=== PATIENT | female | born 1970 | race Two or more races ===

== ENCOUNTER 2025-07-01 20:37 | Inpatient (IN) | payer OTHER, MEDICAID ==
[~2025-07-01] VITALS: Ht 152.4 cm; Wt 77.5 kg
--- NOTE | 2025-07-01 21:13 | ED.PDOC ---
History of Present Illness HPI Comments 55-year-old female with past medical history of gastritis, unrepaired VSD, comes in due to left-sided flank pain. According to the patient, around 2:00 p.m. today on 07/01/2025 she started experiencing a left-sided flank pain with radiation to the back, she describes the pain as sharp, constant, 9/10 at onset, relieved by 2 Advils, without any exacerbating factors and associated with nausea and urinary frequency. Denies having similar symptoms in the past. On review of systems patient is complaining of chills, fever, dry cough, nausea,burning urination. Chief Complaint: Flank Pain Time Seen by MD: 20:51 Allergies: Coded Allergies: Penicillins (Verified Allergy, Unknown, 07/01/25) Information Source: Patient Mode of Arrival: Ambulatory Severity: Mild Timing: Hours Duration: Intermittent Prehospital treatment: Pain Meds Past Medical History Past Medical History (Contd): gastritis, unrepaired VSD Surgical History: Cholecystectomy Social History Smoker: Non-Smoker Alcohol: Denies ETOH Use Drugs: Denies Drug Use Lives In: Home Constitutional: reports: chills; denies: diaphoresis, fatigue, fever, malaise, sweats, weakness, others EENTM: denies: blurred vision, double vision, ear bleeding, ear discharge, ear drainage, ear pain, ear ringing, eye pain, eye redness, hearing loss, mouth pain, mouth swelling, nasal discharge, nose bleeding, nose congestion, nose pain, photophobia, tearing, throat pain, throat swelling, voice changes, others Respiratory: reports: cough; denies: hemoptysis, orthopnea, SOB at rest, shortness of breath, SOB with excertion, stridor, wheezing, others Cardiovascular: denies: chest pain, dizzy spells, diaphoresis, Dyspnea on exertion, edema, irregular heart beat, left arm pain, lightheadedness, palpitations, PND, syncope, others Gastrointestinal: reports: nausea; denies: abdomen distended, abdominal pain, blood streaked bowels, constipated, diarrhea, dysphagia, difficulty swallowing, hematemesis, melena, poor appetite, poor fluid intake, rectal bleeding, rectal pain, vomiting, others Genitourinary: reports: burning, dysuria, flank pain, frequency; denies: abnormal vagina bleeding, dyspareunia, hematuria, incontinence, pain, , vagina discharge, urgency, others Neurological: denies: dizziness, fainting, headache, left sided numbness, left sided weakness, numbness, paresthesia, pre-existing deficit, right sided numbness, right sided weakness, seizure, speech problems, tingling, tremors, weakness, others Musculoskeletal: denies: back pain, gout, joint pain, joint swelling, muscle pain, muscle stiffness, neck pain, others Integumetry: denies: bruises, change in color, change in hair/nails, dryness, laceration, lesions, lumps, rash, wounds, others Allergic/Immunocompromised: denies: Difficulty Healing, Frequent Infections, Hives, Itching, others Hematologic/Lymphatic: denies: anemia, blood clots, easy bleeding, easy b ruising, swollen glands, others Physical Exam General Appearance: Mild Distress HEENT: Normal ENT Inspection, PERRL/EOMI Neck: Full Range of Motion, Non-Tender, Normal, Normal Inspection Respiratory: Lungs Clear, No Accessory Muscle Use, No Respiratory Distress, Normal Breath Sounds Cardiovascular: No Edema, No JVD, No Murmur, Regular Rate/Rhythm Breast Exam: Deferred Gastrointestinal: Suprapubic, Tenderness, Other (Left-sided costovertebral angle tenderness, mild) Genitalia: Deferred Pelvic: Deferred Rectal: Rectal Exam not done Extremities: No calf tenderness, Normal inspection, Normal range of motion, Non-tender, No pedal edema Neurologic: Alert, No Motor Deficits, Normal Mood, No Sensory Deficits Cerebellar Function: Normal Reflexes: NOT DONE Skin: Dry, None, Normal Color Peripheral Pulses: 2+ dorsalis pedis (R), 2+ dorsalis pedis (L) Lymphatic: NOT DONE Was a procedure done? Was a procedure done?: No Differential Dx Considerations may include: Urinary tract infection Acute cystitis Musculoskeletal pain X-Ray, Labs, Meds, VS Vital Signs Date Time Temp Pulse Resp B/P (MAP) Pulse Ox O2 Delivery O2 Flow Rate FiO2 07/02/25 00:05 101.1 81 19 166/92 (116) 97 101.1 07/01/25 20:46 97.3 84 18 152/89 96 97.3 Lab Test 07/01/25 21:49 07/01/25 21:19 Range/Units Urine Color Colorless Yellow Urine Clarity Turbid H Clear Urine pH 6.0 5.0-9.0 Urine Specific [place] 1.015 1.001-1.035 Urine Protein 1+ H Negative Urine Ketones Negative Negative Urine Blood 2+ H Negative /uL Urine Nitrite 1+ H Negative Urine Bilirubin Negative Negative Urine Urobilinogen Normal Negative mg/dL Urine Leukocyte Esterase 3+ Negative /uL Urine RBC 42 0 - 4 /hpf Urine Microscopic WBC 574 H 0-5 /HPF Urine Squamous Epithelial Cells None seen <5 /hpf Urine Bacteria Few H None Seen /hpf Urine Mucus Few None Seen Urine Glucose Normal Normal mg/dL White Blood Count 11.4 H 4.4-10.8 10^3/uL Red Blood Count 5.08 4.0-5.20 10^6/uL Hemoglobin 15.3 12.2-16.2 g/dL Hematocrit 44.6 36.0-46.0 % Mean Corpuscular Volume 87.8 80.0-100.0 fL Mean Corpuscular Hemoglobin 30.2 28.0-32.0 pg Mean Corpuscular Hemoglobin Concent 34.4 32.0-36.0 g/dL Red Cell Distribution Width 12.8 11.8-14.3 % Platelet Count 371 140-450 10^3/uL Mean Platelet Volume 6.9 6.9-10.8 fL Neutrophils (%) (Auto) 65.7 37.0-80.0 % Lymphocytes (%) (Auto) 25.2 10.0-50.0 % Monocytes (%) (Auto) 6.4 0.0-12.0 % Eosinophils (%) (Auto) 2.3 0.0-7.0 % Basophils (%) (Auto) 0.4 0.0-2.0 % Neutrophils # (Auto) 7.5 1.6-8.6 10 ^3/uL Lymphocytes # (Auto) 2.9 0.4-5.4 10 ^3/uL Monocytes # (Auto) 0.7 0-1.3 10 ^3/uL Eosinophils # (Auto) 0.3 0-0.8 10 ^3/uL Basophils # (Auto) 0 0-0.2 10 ^3/uL Nucleated Red Blood Cells 0.1 % Sodium Level 143 136-145 mmol/L Potassium Level 3.8 3.5-5.1 mmol/L Chloride Level 103 98-107 mmol/L Carbon Dioxide Level 32 H 20-31 mmol/L Anion Gap 8 5-15 Blood Urea Nitrogen 9 9-23 mg/dL Creatinine 0.72 0.550-1.02 mg/dL Glomerular Filtration Rate Calc 100 >90 mL/min BUN/Creatinine Ratio 12.5 10.0-20.0 Serum Glucose 116 H 74-106 mg/dL Calcium Level 9.7 8.7-10.4 mg/dL Current Medications Medications (Trade) Dose Ordered Sig/Julio Route Start Time Stop Time Status Last Admin Ondansetron HCl (Zofran Po) 4 mg ONCE ONCE PO 07/01/25 23:00 07/01/25 23:01 DC 07/02/25 00:09 Acetaminophen/ Hydrocodone Bitart (Brillion 5/325MG Tab) 1 tab ONCE ONCE PO 07/01/25 23:15 07/01/25 23:18 DC 07/02/25 00:09 Time of 1ST Reevaluation: 22:00 Reevaluation 1ST: Unchanged Time of 2ND Reevaluation: 23:00 Reevaluation 2ND: Worsened Patient Education/Counseling: Diagnosis, Treatment, Prognosis, Need For Follow Up Family Education/Counseling: No Family Present SEPSIS Sepsis Screen Date sepsis recognized/suspect: Jul 01, 2025 Time Sepsis recognized/suspect: 2048 Recent Procedure: No On Antibiotic Therapy: No Respiratory Rate >20: No Heart Rate >90: No Temp<36 C (96.8 F) or >38.3 C: No SBP <90 or MAP <65 mmHG: No New Acute Mental Status Change: No Is the patient on CPAP, BIPAP,: No Physician Orders Ct Ab Pel Wo Con-No Oral Or Iv (07/01/25 22:02) Vital Signs Date Time Temp Pulse Resp B/P (MAP) Pulse Ox O2 Delivery O2 Flow Rate FiO2 07/02/25 00:05 101.1 81 19 166/92 (116) 97 101.1 07/01/25 20:46 97.3 84 18 152/89 96 97.3 Laboratory Tests Test 07/01/25 21:19 White Blood Count 11.4 10^3/uL (4.4-10.8) H Medications Medications Dose Ordered Sig/Julio Route Start Time Stop Time Status Last Admin Dose Admin Acetaminophen/ Hydrocodone Bitart 1 tab ONCE ONCE PO 07/01/25 23:15 07/01/25 23:18 DC 07/02/25 00:09 Ondansetron HCl 4 mg ONCE ONCE PO 07/01/25 23:00 07/01/25 23:01 DC 07/02/25 00:09 Departure 1 Departure Time of Disposition: 00:00 Impression: Primary Impression: Pyelonephritis Additional Impression: Urinary tract infection Qualified Codes: N39.0 - Urinary tract infection, site not specified Disposition: ADMITTED INPATIENT Admit to: Med Surg Condition: Guarded Comments Patient continues to have fever as high as 101 along with left flank pain and costovertebral angle tenderness despite treatment with acetaminophen 1000 mg, Brillion 5 and Zofran. Patient will be admitted for further evaluation and management of possible pyelonephritis. Critical Care Note Critical Care Time?: No Stability Stability form required: KATIE Lira RESIDENT Jul 01, 2025 21:13
[2025-07-01 21:41] LABS: Hematocrit 44.6 % (36.0-46.0); Hemoglobin 15.3 g/dL (12.2-16.2); Mean Corpuscular Hemoglobin 30.2 pg (28.0-32.0); Mean Corpuscular Volume 87.8 fL (80.0-100.0); Nucleated Red Blood Cells % 0.1 %
[2025-07-01 21:48] LABS: Chloride 103 mmol/L (98-107); Potassium 3.8 mmol/L (3.5-5.1); Sodium 143 mmol/L (136-145)
[2025-07-01 21:49] LABS: Anion Gap 8 (5-15)
[2025-07-01 21:50] LABS: Calcium 9.7 mg/dL (8.7-10.4); Carbon Dioxide 32 mmol/L (20-31)
[2025-07-01 21:54] LABS: Glucose 116 mg/dL (74-106)
[2025-07-01 21:55] LABS: BUN/Creatinine Ratio 12.5 (10.0-20.0); Blood Urea Nitrogen 9 mg/dL (9-23)
[2025-07-01 21:57] LABS: Urine Protein, UAD 1+ (Negative)
--- NOTE | 2025-07-01 22:59 | DVH ---
CLINICAL HISTORY: r/o nephrolithiasis, pyelonephritis TECHNIQUE: CT of the abdomen and pelvis was performed without intravenous contrast This exam was performed according to our departmental dose optimization program. Up-to-date CT equipment and radiation dose reduction techniques are utilized as appropriate. WID: COMPARISON: None FINDINGS: Limited CT assessment of the organs in the setting of lack of intravenous contrast. Lung bases: Calcified right lower lobe granuloma. Liver: Unremarkable. Gallbladder and bile ducts: Status post cholecystectomy. Spleen: Unremarkable. Pancreas: Unremarkable. Adrenals: Unremarkable. Kidneys and ureters: Unremarkable. Bowel: Asymmetric wall thickening of the gastric body along the greater curvature. The small bowel and appendix are within normal limits. Moderate colonic stool burden.. Bladder: Unremarkable. Reproductive organs: Unremarkable. Nonspecific calcifications within the endometrium. Lymph nodes: Unremarkable. Vessels: Unremarkable. Abdominal wall: Unremarkable. Bones: Unremarkable. Other: Unremarkable. IMPRESSION: Asymmetric wall thickening of the gastric body along the greater curvature of unknown etiology, recommend endoscopy in the nonemergent setting for further assessment. Limited assessment for pyelonephritis in the setting of lack of intravenous contrast No evidence of hydronephrosis or nephrolithiasis Status post cholecystectomy
[2025-07-01] MEDS ORDERED: ACETAMINOPHEN 500 MG TAB or CAP PO ONE (23:00)
[2025-07-02] VITALS (8 sets, daily range): BP systolic 118–172; BP diastolic 63–89; PULSE 68–94; RESP 16–20; TEMP 98.2–99.2; O2SAT 95–99
[2025-07-02] MEDS: HYDROcodone-ACET 5/325MG TAB PO ONE (00:09)
[2025-07-02] MEDS: ONDANSETRON ODT 4 MG TAB PO ONE (00:09)
--- NOTE | 2025-07-02 00:47 | DVHHPRES ---
History of Present Illness Resident Creating Document: KALLI DELEON RESIDENT History of Present Illness This is a 55-year-old female with past medical history of CVA, TIA, unrepaired VSD, hypertension, gastritis presented to the ED with a chief complaint of right flank pain since Friday morning prior to this admission. The patient stated that she started having right flank pain features dropping colicky in nature, 04/06, radiates to the right groin, without any aggravating or relieving factors and associated with fever, chills and burning sensation in the urine. She denies any nausea, vomiting, shortness of breath, chest pain, hematuria, recent positive sick contact, traveling or any altered bowel habit. Past Medical History CVA, TIA, unrepaired VSD, hypertension, gastritis Past Surgical History Cholecystectomy Family History Family history is significant for breast cancer in both male and female. Past Social History Lives with family Used to smoke weed, quit 1 month ago, nonsmoker and nonalcoholic Review of Systems Constitutional: Yes: Fever, Chills; No: Sweats, Weakness, Malaise, Other Eyes: No: Pain, Vision change, Conjunctivae inflammation, Eyelid inflammation, Other, Redness ENT: No: Ear pain, Ear discharge, Nose pain, Nose discharge, Nose congestion, Mouth pain, Mouth swelling, Throat pain, Throat swelling, Other Respiratory: No: Cough, Dry, Shortness of breath, SOB with excertion, Wheezing, Hemoptysis, Pleuritic Pain, Sputum, Wheezing, Other Cardiovascular: No: Chest Pain, Palpitations, Orthopnea, Paroxysmal Noc. Dyspnea, Edema, Lt Headedness, Other Gastrointestinal: Abdominal Pain; No: Nausea, Vomiting, Diarrhea, Constipation, Melena, Hematochezia, Other Genitourinary: Dysuria, Frequency; No Incontinence, No Hematuria, No Retention, No Other Musculoskeletal: No: other, neck pain, shoulder pain, arm pain, back pain, hand pain, leg pain, foot pain Skin: No: Rash, Lesions, Jaundice, Bruising, Other Neurological: No: Weakness, Numbness, Incoordination, Change in speech, Confusion, Seizures, Other Allergies: Coded Allergies: Penicillins (Verified Allergy, Unknown, 07/01/25) Exam Vital Signs Vital Signs Date Time Temp Pulse Resp B/P (MAP) Pulse Ox O2 Delivery O2 Flow Rate FiO2 07/02/25 00:05 101.1 81 19 166/92 (593) 93 101.1 Exam Physical examination: General Appearance: Alert, Oriented X3, Cooperative, No acute distress HEENT: Atraumatic, PERRLA, EOMI, Mucous membrane moist/pink Respiratory: Clear to auscultation, Normal air movement Cardiovascular: Regular rate, Normal S1, Normal S2, No murmurs, no chest wall tenderness Abdominal: Normal bowel sounds, Soft, mild tenderness in the right CVA, No hepatospenomegaly, No masses Extremities: No clubbing, No cyanosis, No edema, Normal pulses, No tenderness /swelling Skin: No rashes, No breakdown, No significant lesion Neuro: Normal gait, Normal speech, Strength at 5/5 X4 ext, Normal tone, Sensation intact, Cranial nerves 3-12 NL, Reflexes 2+ Psych/Mental Status: Mental status NL, Mood NL Labs/Xrays Labs Test 07/01/25 21:49 07/01/25 21:19 Range/Units Urine Color Colorless Yellow Urine Clarity Turbid H Clear Urine pH 6.0 5.0-9.0 Urine Specific [place] 1.015 1.001-1.035 Urine Protein 1+ H Negative Urine Ketones Negative Negative Urine Blood 2+ H Negative /uL Urine Nitrite 1+ H Negative Urine Bilirubin Negative Negative Urine Urobilinogen Normal Negative mg/dL Urine Leukocyte Esterase 3+ Negative /uL Urine RBC 42 0 - 4 /hpf Urine Microscopic WBC 574 H 0-5 /HPF Urine Squamous Epithelial Cells None seen <5 /hpf Urine Bacteria Few H None Seen /hpf Urine Mucus Few None Seen Urine Glucose Normal Normal mg/dL White Blood Count 11.4 H 4.4-10.8 10^3/uL Red Blood Count 5.08 4.0-5.20 10^6/uL Hemoglobin 15.3 12.2-16.2 g/dL Hematocrit 44.6 36.0-46.0 % Mean Corpuscular Volume 87.8 80.0-100.0 fL Mean Corpuscular Hemoglobin 30.2 28.0-32.0 pg Mean Corpuscular Hemoglobin Concent 34.4 32.0-36.0 g/dL Red Cell Distribution Width 12.8 11.8-14.3 % Platelet Count 371 140-450 10^3/uL Mean Platelet Volume 6.9 6.9-10.8 fL Neutrophils (%) (Auto) 65.7 37.0-80.0 % Lymphocytes (%) (Auto) 25.2 10.0-50.0 % Monocytes (%) (Auto) 6.4 0.0-12.0 % Eosinophils (%) (Auto) 2.3 0.0-7.0 % Basophils (%) (Auto) 0.4 0.0-2.0 % Neutrophils # (Auto) 7.5 1.6-8.6 10 ^3/uL Lymphocytes # (Auto) 2.9 0.4-5.4 10 ^3/uL Monocytes # (Auto) 0.7 0-1.3 10 ^3/uL Eosinophils # (Auto) 0.3 0-0.8 10 ^3/uL Basophils # (Auto) 0 0-0.2 10 ^3/uL Nucleated Red Blood Cells 0.1 % Sodium Level 143 136-145 mmol/L Potassium Level 3.8 3.5-5.1 mmol/L Chloride Level 103 98-107 mmol/L Carbon Dioxide Level 32 H 20-31 mmol/L Anion Gap 8 5-15 Blood Urea Nitrogen 9 9-23 mg/dL Creatinine 0.72 0.550-1.02 mg/dL Glomerular Filtration Rate Calc 100 >90 mL/min BUN/Creatinine Ratio 12.5 10.0-20.0 Serum Glucose 116 H 74-106 mg/dL Calcium Level 9.7 8.7-10.4 mg/dL SEPSIS Sepsis Screen Date sepsis recognized/suspect: Jul 02, 2025 Time Sepsis recognized/suspect: 0005 Recent Procedure: No On Antibiotic Therapy: No Respiratory Rate >20: No Heart Rate >90: No Temp<36 C (96.8 F) or >38.3 C: No SBP <90 or MAP <65 mmHG: No New Acute Mental Status Change: No Is the patient on CPAP, BIPAP,: No Physician Orders Ct Ab Pel Wo Con-No Oral Or Iv (07/01/25 22:02) Levofloxacin 750mg (Levaquin) (07/02/25 00:15) Sodium Chloride 0.9% (07/02/25 00:15) Admit (07/02/25 00:45) Vital Signs Date Time Temp Pulse Resp B/P (MAP) Pulse Ox O2 Delivery O2 Flow Rate FiO2 07/02/25 00:05 101.1 81 19 166/92 (116) 97 101.1 07/01/25 20:46 97.3 84 18 152/89 96 97.3 Laboratory Tests Test 07/01/25 21:19 White Blood Count 11.4 10^3/uL (4.4-10.8) H Medications Medications Dose Ordered Sig/Julio Route Start Time Stop Time Status Last Admin Dose Admin Acetaminophen/ Hydrocodone Bitart 1 tab ONCE ONCE PO 07/01/25 23:15 07/01/25 23:18 DC 07/02/25 00:09 1 TAB Ondansetron HCl 4 mg ONCE ONCE PO 07/01/25 23:00 07/01/25 23:01 DC 07/02/25 00:09 4 MG Assessment/Plan Assessment/Plan Assessment and plan: # Possible acute pyelonephritis # Acute complicated UTI - CT abdomen pelvis without contrast demonstrated no hydronephrosis or nephrolithiasis - U/A was consistent with a UTI - pending urine bacterial culture - IV levofloxacin 750 mg once and daily, as patient is allergic to penicillin. # GERD/gastritis - Protonix 40 mg p.o. daily - scheduled for outpatient upper GI endoscopy # History of CVA and TIA - Aspirin 81 mg daily and atorvastatin 40 mg HS # DVT prophylaxis - Lovenox 40 mg SC daily Code status and goal of care discussed with the patient for more than 23 minutes full code Plan discussed with Dr. Huber Plan discussed with: Patient, Spouse, Other (RN) My Orders Orders - KALLI DELEON Procedure Category Date Status Time Admit ADMIT 07/02/25 Verified 00:45 Visit Coding STANDARD RES Billing Provider: BALJINDER HUBER MD Date of Service if different f: Jul 02, 2025 Common Visit Codes: [id number] INP/OBS CARE (HIGH) Secondary Visit Codes: [id number] CARE PLAN 30 MINUTES KALLI DELEON Jul 02, 2025 00:47
[2025-07-02] MEDS ORDERED: ACETAMINOPHEN 500 MG TAB or CAP PO PRN (01:00)
[2025-07-02] MEDS: PANTOPRAZOLE 40 MG TAB PO ONE (01:56)
[2025-07-02] MEDS: SODIUM CHLORIDE 0.9% 1,000 ML IV ONE (01:56)
[2025-07-02] MEDS: ASPirin-EC 81 mg tab PO SCH (10:00)
[2025-07-02 10:22] LABS: Hematocrit 43.1 % (36.0-46.0); Hemoglobin 14.9 g/dL (12.2-16.2); Mean Corpuscular Hemoglobin 30.5 pg (28.0-32.0); Mean Corpuscular Volume 87.9 fL (80.0-100.0); Nucleated Red Blood Cells % 0.1 %
[2025-07-02] MEDS: ENOXAPARIN SOD 40 MG/0.4 ML SYRINGE SC SCH (10:33)
[2025-07-02 10:36] LABS: Chloride 103 mmol/L (98-107); Potassium 3.6 mmol/L (3.5-5.1); Sodium 143 mmol/L (136-145)
[2025-07-02 10:37] LABS: Anion Gap 8 (5-15); Calcium 9.4 mg/dL (8.7-10.4)
[2025-07-02 10:40] LABS: Carbon Dioxide 32 mmol/L (20-31)
[2025-07-02 10:42] LABS: BUN/Creatinine Ratio 10.3 (10.0-20.0)
[2025-07-02 10:47] LABS: Blood Urea Nitrogen 7 mg/dL (9-23); Glucose 126 mg/dL (74-106)
[2025-07-02] MEDS: ATORVASTATIN 20 MG TAB PO SCH (22:20)
[2025-07-03 05:00] VITALS: BP 130/79; PULSE 77; RESP 14; TEMP 97; O2SAT 97
[2025-07-03] MEDS: HYDROcodone-ACET 5/325MG TAB PO PRN (05:08)
[2025-07-03 08:08] VITALS: BP 128/67; PULSE 77; RESP 20; TEMP 98.5; O2SAT 95
[2025-07-03] MEDS: PANTOPRAZOLE 40 MG TAB PO SCH (09:28)
[2025-07-03 12:37] VITALS: BP 137/93; PULSE 69; RESP 20; TEMP 98.1; O2SAT 96
--- NOTE | 2025-07-03 13:54 | DVHPN2 ---
Reviewed: Care Plan, H&P, Labs, Medications, Previous Orders Changes from previous H/P or p: No Changes General: Per HPI Eyes: No Pain, No Vision change, No Conjunctivae inflammation, No Eyelid inflammation, No Other, No Redness ENT: No Ear pain, No Ear discharge, No Nose pain, No Nose discharge, No Nose congestion, No Mouth pain, No Mouth swelling, No Throat pain, No Throat swelling, No Other Cardiovascular: No Chest Pain, No Palpitations, No Orthopnea, No Paroxysmal Noc. Dyspnea, No Edema, No Lt Headedness, No Other Respiratory: No Cough, No Dry, No Shortness of breath, No SOB with excertion, No Wheezing, No Hemoptysis, No Pleuritic Pain, No Sputum, No Other Gastrointestinal: No Nausea, No Vomiting; Abdominal Pain; No Diarrhea, No Constipation, No Melena, No Hematochezia, No Other Genitourinary: Dysuria, Frequency; No Incontinence, No Hematuria, No Retention, No Other Musculoskeletal: No other, No neck pain, No shoulder pain, No arm pain, No back pain, No hand pain, No leg pain, No foot pain Skin: No Rash, No Lesions, No Jaundice, No Bruising, No Other Objective Vitals Vital Signs Date Time Temp Pulse Resp B/P (MAP) Pulse Ox O2 Delivery O2 Flow Rate FiO2 07/03/25 12:37 98.1 69 20 137/93 (108) 96 98.1 07/03/25 08:00 Room Air* 0 21 Intake/Output Intake and Output 07/03/25 07:00 Intake Total 2140 ml Output Total 550 ml Balance 1590 ml Intake Oral 2140 ml Output Urine Total 550 ml # Voids 3 Medications Current Medications Medications Dose Ordered Sig/Julio Route Start Time Stop Time Status Last Admin Dose Admin Levofloxacin/ Dextrose 150 ml @ 150 mls/hr DAILY IV 07/03/25 10:00 07/03/25 09:30 150 MLS/HR Pantoprazole Sodium 40 mg DAILY PO 07/03/25 10:00 07/03/25 09:28 40 MG Enoxaparin Sodium 40 mg DAILY SC 07/02/25 10:00 07/03/25 09:29 40 MG Aspirin 81 mg DAILY PO 07/02/25 10:00 Atorvastatin Calcium 40 mg HS PO 07/02/25 22:00 07/02/25 22:20 40 MG Acetaminophen/ Hydrocodone Bitart 1 tab Q6HPRN PRN PO 07/02/25 06:45 07/03/25 05:08 1 TAB Laboratory Results Laboratory Tests 07/02/25 09:47 Urinalysis Test 07/01/25 21:49 Urine Color Colorless (Yellow) Urine Clarity Turbid (Clear) H Urine pH 6.0 (5.0-9.0) Urine Specific [place] 1.015 (1.001-1.035) Urine Protein 1+ (Negative) H Urine Ketones Negative (Negative) Urine Blood 2+ /uL (Negative) H Urine Nitrite 1+ (Negative) H Urine Bilirubin Negative (Negative) Urine Urobilinogen Normal mg/dL (Negative) Urine Leukocyte Esterase 3+ /uL (Negative) Urine RBC 42 /hpf (0 - 4) Urine Microscopic WBC 574 /HPF (0-5) H Urine Squamous Epithelial Cells None seen /hpf (<5) Urine Bacteria Few /hpf (None Seen) H Urine Mucus Few (None Seen) Urine Glucose Normal mg/dL (Normal) Microbiology Microbiology Date/Time Source Procedure Growth Status 07/02/25 21:49 Voided Urine Urine Culture - Preliminary Resulted Assessment/Plan Assessment/Plan This is a 55-year-old female with past medical history of CVA, TIA, unrepaired VSD, hypertension, gastritis presented to the ED with a chief complaint of right flank pain since Friday morning prior to this admission. The patient stated that she started having right flank pain features dropping colicky in nature, 9/10, radiates to the right groin, without any aggravating or relieving factors and associated with fever, chills and burning sensation in the urine. She denies any nausea, vomiting, shortness of breath, chest pain, hematuria, recent positive sick contact, traveling or any altered bowel habit. #1 uti with sepsis: iv rocephin #2 ? gastritis: ppi #3 obesity #4 vsd #5 h/o cva Plan discussed with: Patient Date of Service: Jul 03, 2025 Billing Provider: YAMILE BILL DO Common Visit Codes: [id number] INP/OBS CARE(HIGH) YAMILE BILL DO Jul 03, 2025 13:54
[2025-07-03 17:00] VITALS: BP 130/76; PULSE 64; RESP 18; TEMP 98.5; O2SAT 96
[2025-07-03 21:00] VITALS: BP 139/83; PULSE 72; RESP 18; TEMP 98.2; O2SAT 96
[2025-07-04 01:00] VITALS: BP 135/84; PULSE 66; RESP 19; TEMP 98.1; O2SAT 95
[2025-07-04 05:00] VITALS: BP 137/86; PULSE 68; RESP 19; TEMP 97.8; O2SAT 96
--- NOTE | 2025-07-04 11:31 | DVHPN2 ---
Progress Note Date Seen: Jul 04, 2025 Medical Necessity Reason Pt with a Central, PICC or Fol: No Subjective Patient reports: No new complaints Review of Systems: HEENT:Normal, CVS:Normal, RESPIRATORY:Normal, GI:Normal, :Normal, MSK:Normal, NEURO:Normal Objective vital signs Vital Sign Date Time Temp Pulse Resp B/P (MAP) Pulse Ox O2 Delivery O2 Flow Rate FiO2 07/04/25 05:00 97.8 68 19 137/86 (103) 96 97.8 07/03/25 20:00 Room Air* 0 21 Total Intake and Output 07/03/25 07/03/25 07/04/25 15:00 23:00 07:00 Intake Total 150 ml 740 ml 1200 ml Balance 150 ml 740 ml 1200 ml medications Current Medications Medications Dose Ordered Sig/Julio Route Start Time Stop Time Status Last Admin Dose Admin Levofloxacin/ Dextrose 150 ml @ 150 mls/hr DAILY IV 07/03/25 10:00 07/04/25 10:06 150 MLS/HR Pantoprazole Sodium 40 mg DAILY PO 07/03/25 10:00 07/04/25 10:06 40 MG Enoxaparin Sodium 40 mg DAILY SC 07/02/25 10:00 07/04/25 10:06 40 MG Aspirin 81 mg DAILY PO 07/02/25 10:00 Atorvastatin Calcium 40 mg HS PO 07/02/25 22:00 07/02/25 22:20 40 MG Acetaminophen/ Hydrocodone Bitart 1 tab Q6HPRN PRN PO 07/02/25 06:45 07/03/25 05:08 1 TAB Examination: GENERAL:Normal, HEENT:Normal, NECK:Normal, LUNGS:Normal, CVS:Normal, ABDOMEN:Normal, MSK:Normal, SKIN:Normal, NEURO:Normal, :Normal laboratory and microbiology Laboratory Tests 07/02/25 09:47 Test 07/02/25 09:47 Range/Units Serum Glucose 126 H 74-106 mg/dL Microbiology Date/Time Source Procedure Growth Status 07/02/25 21:49 Voided Urine Urine Culture - Preliminary Resulted Problem List/Assessment/Plan Problem List/Assessment/Plan #1 uti with sepsis: iv rocephin #2 ? gastritis: ppi #3 obesity #4 vsd #5 h/o cva advance care planning- full code- time spent 18 mins Plan discussed with: Patient My Orders My Orders Orders - NICHOLAS KHALIL MD Procedure Category Date Status Time Ceftriaxone Ivpb PHA 07/05/25 Verified Rocephin 09:00 Basic Metabolic Panel LAB 07/05/25 Verified 06:00 Complete Blood Count LAB 07/05/25 Verified 06:00 Date of Service: Jul 04, 2025 Billing Provider: NICHOLAS KHALIL MD Common Visit Codes: [id number] INP/OBS CARE(HIGH) Secondary Visit Codes: [id number] CARE PLAN 30 MINUTES NICHOLAS KHALIL MD Jul 04, 2025 11:31
[2025-07-04 17:30] VITALS: BP 133/83; PULSE 80; RESP 16; TEMP 98.2; O2SAT 97
[2025-07-04 21:26] VITALS: BP 135/85; PULSE 67; RESP 16; TEMP 98.1; O2SAT 96
[2025-07-05 00:54] VITALS: BP 109/68; PULSE 61; RESP 18; TEMP 97.8; O2SAT 96
[2025-07-05 06:17] LABS: Hematocrit 41.3 % (36.0-46.0); Hemoglobin 14.3 g/dL (12.2-16.2); Mean Corpuscular Hemoglobin 30.5 pg (28.0-32.0); Mean Corpuscular Volume 88.1 fL (80.0-100.0); Nucleated Red Blood Cells % 0.1 %
[2025-07-05 06:26] LABS: Anion Gap 6 (5-15); Chloride 105 mmol/L (98-107); Potassium 3.8 mmol/L (3.5-5.1); Sodium 143 mmol/L (136-145)
[2025-07-05 06:27] LABS: Calcium 9.4 mg/dL (8.7-10.4); Carbon Dioxide 32 mmol/L (20-31)
[2025-07-05 06:32] LABS: BUN/Creatinine Ratio 16.7 (10.0-20.0); Blood Urea Nitrogen 13 mg/dL (9-23)
[2025-07-05 06:34] LABS: Glucose 107 mg/dL (74-106)
[2025-07-05 08:00] VITALS: PULSE 65; O2SAT 98
[2025-07-05 09:30] VITALS: BP 122/75; PULSE 65; RESP 16; TEMP 97.4; O2SAT 98
[2025-07-05 13:30] VITALS: BP 137/86; PULSE 62; RESP 14; TEMP 97.3; O2SAT 96
--- NOTE | 2025-07-05 14:25 | DVHDS2 ---
Discharge Summary Date of Admission Jul 02, 2025 at 00:45 Date of Discharge: Jul 05, 2025 Labs/Diagnostic Data: Laboratory Results Test 07/05/25 05:34 07/02/25 09:47 07/01/25 21:49 07/01/25 21:19 White Blood Count 5.9 10^3/uL (4.4-10.8) Red Blood Count 4.69 10^6/uL (4.0-5.20) Hemoglobin 14.3 g/dL (12.2-16.2) Hematocrit 41.3 % (36.0-46.0) Mean Corpuscular Volume 88.1 fL (80.0-100.0) Mean Corpuscular Hemoglobin 30.5 pg (28.0-32.0) Mean Corpuscular Hemoglobin Concent 34.7 g/dL (32.0-36.0) Red Cell Distribution Width 12.2 % (11.8-14.3) Platelet Count 319 10^3/uL (140-450) Mean Platelet Volume 7.4 fL (6.9-10.8) Neutrophils (%) (Auto) 47.5 % (37.0-80.0) Lymphocytes (%) (Auto) 38.3 % (10.0-50.0) Monocytes (%) (Auto) 8.2 % (0.0-12.0) Eosinophils (%) (Auto) 5.4 % (0.0-7.0) Basophils (%) (Auto) 0.6 % (0.0-2.0) Neutrophils # (Auto) 2.8 10 ^3/uL (1.6-8.6) Lymphocytes # (Auto) 2.3 10 ^3/uL (0.4-5.4) Monocytes # (Auto) 0.5 10 ^3/uL (0-1.3) Eosinophils # (Auto) 0.3 10 ^3/uL (0-0.8) Basophils # (Auto) 0 10 ^3/uL (0-0.2) Nucleated Red Blood Cells 0.1 % Sodium Level 143 mmol/L (136-145) Potassium Level 3.8 mmol/L (3.5-5.1) Chloride Level 105 mmol/L (98-107) Carbon Dioxide Level 32 mmol/L (20-31) Anion Gap 6 (5-15) Blood Urea Nitrogen 13 mg/dL (9-23) Creatinine 0.78 mg/dL (0.550-1.02) Glomerular Filtration Rate Calc 91 mL/min (>90) BUN/Creatinine Ratio 16.7 (10.0-20.0) Serum Glucose 107 mg/dL (74-106) Calcium Level 9.4 mg/dL (8.7-10.4) Hemoglobin A1c 5.4 % A1C (<5.7) Vitamin B12 Level 530 pg/mL (211-911) Vitamin D 25-Hydroxy 25.3 ng/mL (30.0-100) Urine Color Colorless (Yellow) Urine Clarity Turbid (Clear) Urine pH 6.0 (5.0-9.0) Urine Specific [place] 1.015 (1.001-1.035) Urine Protein 1+ (Negative) Urine Ketones Negative (Negative) Urine Blood 2+ /uL (Negative) Urine Nitrite 1+ (Negative) Urine Bilirubin Negative (Negative) Urine Urobilinogen Normal mg/dL (Negative) Urine Leukocyte Esterase 3+ /uL (Negative) Urine RBC 42 /hpf (0 - 4) Urine Microscopic WBC 574 /HPF (0-5) Urine Squamous Epithelial Cells None seen /hpf (<5) Urine Bacteria Few /hpf (None Seen) Urine Mucus Few (None Seen) Urine Glucose Normal mg/dL (Normal) Thyroid Stimulating Hormone (TSH) 0.87 uIU/mL (0.55-4.78) Other Laboratory Tests 07/05/25 05:34 Brief Hx & Hospital Course: SEE DICTATED NOTE Condition at Discharge: Fair Final Diagnosis/Problems List UTI Discharge Disposition: Home Discharge Instruct/Medications Diet: Cardiac 2g Na,low cholest Activity: No Restrictions, As Tolerated Follow Up/Referral: GAATA MYERS PCP/GI Medications: RESUME HOME MEDS SCRIPT TO PHARMACY Discharge Statement: "Patient was advised to return to the ER or call 911 if any headaches, dizziness, shortness of breath, chest pain, abdominal pain, bleeding, fevers, or worsening of medical condition. Patient was counseled about treatment plan, medications, possible side effects, patientverbalized understanding. All questions were answered to the best of my ability. This discharge took greater then 30 minutes in planning, reviewing documentation, counseling the patient, and discussing with other team members." ASSESSMENT ASSESSMENT Assessment UTI Date of Service: Jul 05, 2025 Billing Provider: NICHOLAS KHALIL MD Common Visit Codes: 42040-SBO/OBS DISCH DAY >30min NICHOLAS KHALIL MD Jul 05, 2025 14:25
[2025-07-05] MEDS ORDERED: LEVO500T91 PO (14:26)
[2025-07-05 17:04] VITALS: BP 165/92; PULSE 70; RESP 18; TEMP 98.3; O2SAT 97
[2025-07-05 17:26] VITALS: BP 136/87; PULSE 88; RESP 16; TEMP 36.8; O2SAT 99
--- NOTE | 2025-07-05 20:15 | DVHDS ---
DATE OF DISCHARGE: 07/05/2025 HISTORY OF PRESENT ILLNESS: The patient is a 55-year-old lady who was admitted with complaints of flank pain and has a history of VSD, hypertension, gastritis, and CVA. HOSPITAL COURSE: The patient had evidence of a UTI. Urine cultures grew E. coli sensitive to Levaquin. The patient's white count was elevated at 11,000 that improved to 5,000 at the time of discharge. The patient had a CT of the abdomen and pelvis that showed a symmetric wall thickening of the gastric body. I have given a copy of that to the patient. The patient will now be discharged home to resume her home medications as well as to be on Levaquin 500 mg daily for 7 days. The patient will also follow up with outpatient GI for consideration of endoscopy. FINAL DIAGNOSES: - Urinary tract infection with sepsis secondary to Escherichia coli. - Questionable gastritis. - Obesity. - History of ventricular septal defect. - History of cerebrovascular accident. I gave a copy of the CT of the abdomen and pelvis to the patient. Time spent in discharge planning and review of plan with the patient and nursing was 38 minutes. MD PILLO Hebert/ENRIQUE TID: [id number] RECEIPT: [id number] [facility]
== END 2025-07-05 17:45 | disposition home or self-care (01) | DRG 872 ==
LOC: ER 20:37 → OVERFLOW 07-02 00:45 → EAST 07-02 02:20
PROVIDERS: ADMIT Internal Medicine; ATTEND Internal Medicine
DX: A41.51 Sepsis due to Escherichia coli [E. coli] (principal); E66.9 Obesity, unspecified; N12 Tubulo-interstitial nephritis, not specified as acute or chronic; I10 Essential (primary) hypertension; Q21.0 Ventricular septal defect; K21.9 Gastro-esophageal reflux disease without esophagitis; K29.70 Gastritis, unspecified, without bleeding; Z86.73 Personal history of transient ischemic attack (TIA), and cerebral infarction without residual deficits; Z88.0 Allergy status to penicillin; Z90.49 Acquired absence of other specified parts of digestive tract; Z80.3 Family history of malignant neoplasm of breast; Z68.33 Body mass index [BMI] 33.0-33.9, adult
CPT/HCPCS: 36415; 74176; 80048; 81001; 82306; 82607; 83036; 84443; 85025; 87086; 87088; 87186; G0378; J1956; Q0162